=== PATIENT | female | born 1995 | race Caucasian/White ===

== ENCOUNTER 2020-09-13 11:09 | Outpatient (CLI) | payer BC, MEDICAID, SELFPAY ==
--- NOTE | 2020-09-13 11:18 | XR_ITS ---
WS: [id number] PROCEDURE: XR chest 2V* [id number] CLINICAL INFORMATION: HISTORY OF ASTHMA, CHILDHOOD, WHEEZING, COUGH COMPARISON: None. FINDINGS: Heart: Normal cardiac silhouette. Lungs: Lungs are clear. No consolidation or pleural fluid. No acute pulmonary infiltrates. Dense vance st tissue. Bones: Normal visualized bony structures. XR/XR chest 2V* [id number] IMPRESSION: No acute pulmonary infiltrates. No acute chest findings.
== END 2020-09-13 11:10 | disposition home or self-care (01) ==
LOC: RADWPI 11:16
PROVIDERS: PCP Nurse Practitioner Family; Visit Provider Nurse Practitioner Family
DX: R06.2 Wheezing (principal); R05 Cough; Z87.09 Personal history of other diseases of the respiratory system
CPT/HCPCS: 71046